=== PATIENT | female | born 1990 | race African-American/Black ===

== ENCOUNTER 2022-09-21 05:33 | Inpatient (IN) ==
[2022-09-21] MEDS ORDERED: METHYLERGONOVINE 0.2 MG/1 ML AMP IM PRN (05:42)
[2022-09-21] MEDS ORDERED: miSOPROStoL 200 MCG TABLET RECTAL PRN (05:42)
[2022-09-21] MEDS ORDERED: TRANEXAMIC ACID 1,000 MG in SODIUM CHLORIDE 0.9% 100 ML IV PRN (05:42)
[2022-09-21] MEDS ORDERED: OXYTOCIN/LR 20 UNIT/1,000 ML BAG IV ONE ×2 (05:42→16:35)
[2022-09-21] MEDS ORDERED: CARBOPROST TROMETHAMINE 250 MCG/ML AMP IM PRN (05:42)
[2022-09-21] MEDS ORDERED: ONDANSETRON 4 MG/2 ML VIAL IV PRN ×2 (05:42→16:35)
[2022-09-21] MEDS ORDERED: OXYTOCIN/LR 20 UNIT/1,000 ML BAG IV SCH (06:00)
[2022-09-21 06:15] LABS: Basophils % 0.3 % (0.0-0.8); Eosinophils # 0.1 10*3/uL (0.0-0.87); Eosinophils % 1.1 % (0.00-10.9); Hematocrit 30.6 VOL% (35.7-47.0); Hemoglobin 9.9 GM/DL (12.0-16.0); Immature Granulocytes % 0.5 %; Immature Granulocytes Absolute 0.03 #; Lymphocytes # 1.6 10*3/uL (1.4-4.0); Mean Corpuscular HGB Conc 32.4 GM/DL (32-36); Mean Corpuscular Volume 85.2 FL (87-102); Mean Platelet Volume 9.9 FL (9.6-12.0); Monocytes # 0.8 10*3/uL (0.11-0.8); Monocytes % 12.6 % (1.7-12.7); Neutrophils % 60.5 % (38.7-73.9); Platelet Count 272 T/CUMM (130-400); Red Blood Count 3.59 MC/CUMM (3.8-5.5); Red Cell Distribution Width 14.3 % (9.3-17.3); White Blood Count 6.53 T/CUMM (4-12)
[2022-09-21] MEDS: LACTATED RINGERS 1,000 ML IV SCH ×2 (06:27→08:45)
[2022-09-21 06:36] LABS: Bilirubin,Total 0.8 MG/DL (0.20-1.00); Calcium 9.6 MG/DL (8.5-10.1); Osmolality,Calculated 264.2 MOS/KG (273-304); Potassium 3.8 MMOL/L (3.5-5.1); Total Protein 7.5 G/DL (6.4-8.2)
[2022-09-21] MEDS ORDERED: diphenhydrAMINE 50 MG/1 ML VIAL IV PRN ×2 (07:31)
[2022-09-21] MEDS ORDERED: ONDANSETRON 4 MG/2 ML VIAL IV ONE (07:31)
[2022-09-21] MEDS ORDERED: ePHEDrine 50 MG/ML VIAL IV PRN (07:31)
[2022-09-21] MEDS ORDERED: NALOXONE 0.4 MG/ML VIAL IV PRN (07:31)
[2022-09-21] MEDS ORDERED: hydrOXYzine HCL 25 MG/1 ML VIAL IM PRN (07:31)
[2022-09-21] MEDS ORDERED: PROMETHAZINE 25 MG/1 ML VIAL IM ONE (07:31)
[2022-09-21] MEDS ORDERED: CITRIC ACID/SODIUM CITRATE 30 ML UDCUP PO ONE (07:47)
[2022-09-21] MEDS ORDERED: FAMOTIDINE 20 MG/2 ML VIAL IV ONE (07:47)
[2022-09-21] MEDS ORDERED: fentaNYL 2 MCG/ROPIV 0.2% EPID 100 ML EPIDURAL SCH (08:00)
[2022-09-21] MEDS ORDERED: LACTATED RINGERS 1,000 ML IV SCH (08:00)
[2022-09-21 10:19] LABS: Mucus,Urine Occasional /LPF (Occasional); RBC,Urine <1 /HPF (0-4); Squamous Epithelial Cell,Urine Occasional /HPF (0-10)
[2022-09-21 10:23] LABS: Bilirubin,Urine Negative (Negative); Blood, Urine Negative (Negative); Glucose,Urine (UA) Negative (Negative); Ketones,Urine Negative (Negative); Nitrite,Urine Negative (Negative); Protein,Urine Negative (Negative); Urine Appearance Clear (Clear); Urine Color Yellow (Yellow)
[2022-09-21] MEDS ORDERED: miSOPROStoL 200 MCG TABLET ONE (12:33)
[2022-09-21] MEDS ORDERED: TRANEXAMIC ACID 1,000 MG/10 ML VIAL ONE (12:33)
[2022-09-21] MEDS ORDERED: CARBOPROST TROMETHAMINE 250 MCG/ML AMP IM ONE (12:34)
[2022-09-21] MEDS ORDERED: SODIUM CHLORIDE 0.9% 0 ML IV ONE (12:34)
[2022-09-21] MEDS ORDERED: METHYLERGONOVINE 0.2 MG/1 ML AMP ONE (12:34)
[2022-09-21 13:36] LABS: Cord Arterial Blood HCO3 22.7 MMOL/L
[2022-09-21 13:48] LABS: Cord Venous Blood HCO3 23.5 MMOL/L; Cord Venous Blood PCO2 42.3 MMHG; Cord Venous Blood PO2 29.8
[2022-09-21] MEDS ORDERED: ACETAMINOPHEN 500 MG TABLET PO ONE (14:17)
[2022-09-21] MEDS ORDERED: HYDROCORTISONE 2.5% RECTAL CREAM 30 GM TUBE TOP PRN (16:35)
[2022-09-21] MEDS ORDERED: BENZOCAINE 20%/MENTHOL 0.5% SPRAY 56 GM CAN TOP PRN (16:35)
[2022-09-21] MEDS ORDERED: oxyCODONE/ACETAMINOPHEN 5-325 MG TABLET PO PRN ×2 (16:35)
[2022-09-21] MEDS ORDERED: LANOLIN 50% CREAM 0.3 OZ TUBE TOP PRN (16:35)
[2022-09-21] MEDS ORDERED: RHO(D) IMMUNE GLOBULIN 300 MCG SYRINGE IM ONE (16:35)
[2022-09-21] MEDS ORDERED: MEASLES/MUMPS/RUBELLA VACCINE 0.5 ML VIAL SUBCUT ONE (16:35)
[2022-09-21] MEDS ORDERED: ACETAMINOPHEN 325 MG TABLET PO PRN (16:35)
[2022-09-21] MEDS ORDERED: DIPH/TET/ACEL PERT BOOSTER VACCINE 0.5 ML VIAL IM ONE (16:35)
[2022-09-21] MEDS ORDERED: BISACODYL 10 MG SUPP RECTAL PRN (16:35)
[2022-09-21] MEDS ORDERED: WITCH HAZEL PADS 100/JAR TOP PRN (16:35)
[2022-09-21] MEDS: IBUPROFEN 800 MG TABLET PO PRN (18:25)
[2022-09-21] MEDS: DOCUSATE SODIUM 100 MG CAPSULE PO SCH (21:30)
[2022-09-22 05:09] LABS: Basophils % 0.4 % (0.0-0.8); Eosinophils # 0.1 10*3/uL (0.0-0.87); Eosinophils % 0.8 % (0.00-10.9); Immature Granulocytes % 0.7 %; Immature Granulocytes Absolute 0.07 #; Lymphocytes # 1.8 10*3/uL (1.4-4.0); Lymphocytes % 16.6 % (21.3-54.2); Mean Corpuscular HGB Conc 32.1 GM/DL (32-36); Mean Corpuscular Volume 84.6 FL (87-102); Mean Platelet Volume 10.1 FL (9.6-12.0); Monocytes # 1.5 10*3/uL (0.11-0.8); Monocytes % 13.8 % (1.7-12.7); Neutrophils % 67.7 % (38.7-73.9); Platelet Count 235 T/CUMM (130-400); Red Blood Count 3.31 MC/CUMM (3.8-5.5); Red Cell Distribution Width 14.4 % (9.3-17.3); White Blood Count 10.56 T/CUMM (4-12)
[2022-09-22] MEDS: IBUPROFEN 800 MG TABLET PO PRN (08:18)
[2022-09-22] MEDS: DOCUSATE SODIUM 100 MG CAPSULE PO SCH ×2 (08:27→20:04)
[2022-09-22] MEDS: MULTIVITAMIN (PRENATAL) TABLET PO SCH (08:27)
[2022-09-23] MEDS: MULTIVITAMIN (PRENATAL) TABLET PO SCH (09:48)
[2022-09-23] MEDS: DOCUSATE SODIUM 100 MG CAPSULE PO SCH (09:48)
[2022-09-23 12:10] VITALS: BP 114/58
== END 2022-09-23 12:45 | disposition home or self-care (01) | DRG 560 ==
LOC: N.LD 05:33 → N.OB 16:15
PROVIDERS: ADMIT Specialist; ATTEND Specialist